=== PATIENT | male | born 1965 | race Hispanic/Latino ===

== ENCOUNTER 2021-12-12 17:13 | Inpatient (IN) | payer BC, OTHER ==
--- OUTSIDE RECORDS SUMMARY | 2021-12-12 17:18 | XMS REPORT | Continuity of Care Document ---
:1965 Author Organization [facility] t Address [address] [place] [address] Care Team Providers Name Role Phone Eric Arteaga Attending Clinician Unavailable Payers Payer Name Policy Type Policy Number Effective Date Expiration Date [facility] Blue [employer] 6 [id number] 2019 Common Spiri t Blue Shield of 00:00:00 - [facility] Problems Condition Condition Condition Status Onset Resolution Last Treating Co mments Source Name Details Category Date Date Treatment Clinician Date [id number] Arthritis Problem Active Co mmon [id number] of knee, Spirit left - [facility] Hypertensi HTN Problem Active Commo n on (hypertens Spirit ion) [facility] Erectile Erectile Problem Active Commo n dysfunctio dysfunctio Sp elder n n - [facility] Complicati Type 2 Problem Active Commo n on due to diabetes Spiri t diabetes mellitus - [facility] mellitus with other St type 2 [facility] complicati Medica l on Center Smoker Smoker Problem Active Common [facility] [id number] Prediabete Problem Active Co mmon s Spirit [facility] [id number] Erectile Problem Active Comm on dysfunctio Spirit n, - [facility] un[facility] erectile [facility] type [facility] Nicotine Nicotine Problem Active Commo n dependence dependence Sp elder - [facility] [id number] Tobacco Problem Active Commo n use Spirit disorder - [facility] [id number] Type [address] [facility] mellitus [facility] with other [facility] complicati Medica l on, Center without long-term current use of insulin Body mass Adult BMI Problem Active Com mon index 40+ 45.0-49.9 Spir it - severely kg/sq - [facility] obese [facility] [id number] Alcohol Problem Active Common abuse [facility] [id number] Mixed Problem Active Common hyperlipid [facility] emia [facility] [id number] Elevated Problem Active Comm on LFTs [facility] [id number] HTN Problem Active Common (hypertens Spirit ion)[facility] benign [facility] Hyperlipid Hyperlipid Problem Active C ommon emia emia [facility] [id number] Steatosis Problem Active Com mon of liver [facility] Allergies, Adverse Reactions, Alerts This patient has no known allergies or adverse reactions. Social History Social Habit Start Date Stop Date Quantity Comments Source History of Tobacco Current Smoker Co mmon [facility] - [facility] Use [facility] Sex Assigned At Com mon [facility] Smoking Status Start Date Stop Date Source Current Smoker 2021-08-02 00:00:00 Common Spiri [facility] Medications Ordered Filled Start Stop Current Ordering Indication Dosage Frequency Signature Comments Components Source Medication Medication Date Date Medication? Clinician (SIG) Name Name Kvng Calderon 2021- No Ozempic (0.25 or (0.25 or 3-03 07-28 (0.25 or 0.5 0.5 00:00: 00:00 0.5 MG/DOSE) 2 MG/DOSE) 2 00 :00 MG/DOSE) 2 MG/1.5ML MG/1.5ML MG/1.5ML buPROPion buPROPion 2020-02 No 1{table QD buPROPion HCl ER (XL) HCl ER (XL) 1-18 t_in_th HCl ER 150 MG 150 MG 00:00: e_morni (XL) 150 00 ng} MG Bupivicaine Bupivicaine 2020-02 No Common Polo Polo 0-26 Spirit 00:00: - [facility] 00 [facility] Kenalog Kenalog 2020-02 No 40mg Common (Triamcinol (Triamcinol 0-26 S pirit one) one) 00:00: - [facility]I 00 [facility] Bupivicaine Bupivicaine 2020-02 No 2.5mg Common Polo Polo 0-26 Spirit 00:00: - [facility] 00 [facility] Flakito Fraga 2020-02 No 40mg Common (Triamcinol (Triamcinol 0-26 S pirit one) one) 00:00: - [facility] 00 [facility] Bupivicaine Bupivicaine 2020-02 No 2.5mg Common Polo Polo 0-26 Spirit 00:00: - [facility] 00 [facility] Flakito Fraga 2020-02 No 40mg Common (Triamcinol (Triamcinol 0-26 S pirit one) one) 00:00: - [facility] 00 [facility] Meloxicam Meloxicam 2020-02- No 1{table QD Meloxicam 7.5 MG 7.5 MG 0-26 11-24 t} 7.5 MG 00:00: 00:00 00 :00 Meloxicam Meloxicam 2020-02- No 1{table QD Meloxicam 7.5 MG 7.5 MG 0-26 11-24 t} 7.5 MG 00:00: 00:00 00 :00 Janumet XR Janumet XR 2019-0 Yes Eric 1 Tablet Common 1-30 [place] Spirit 00:00: - [facility] 00 [facility] Simvastatin Simvastatin Yes Eric 1 tablet Common Arteaga in the Spirit evening - [facility] Lisinopril Lisinopril Yes Eric TAKE 1 Common Arteaga TABLET BY Spirit MOUTH ONCE - CHI DAILY [facility] Simvastatin Simvastatin Yes Eric TAKE 1 Common [place] TABLET BY Spirit MOUTH ONCE - [facility]I DAILY IN [facility] FOR 30 Center DAYS Nicorette Nicorette Yes Eric 1 piece as Common Starter Kit Starter Kit Arteaga needed Spirit every 2 - [facility]I hours [facility] Janumet XR Janumet XR No Janumet XR 50-1000 MG 50-1000 MG 50-1000 MG Nicorette Nicorette No Nicorette Starter Kit Starter Kit Starter 4 MG 4 MG Kit 4 MG Lisinopril Lisinopril No 1{table QD Lisinopril 5 MG 5 MG t} 5 MG Simvastatin Simvastatin No 1{table QD Simvastati 80 MG 80 MG t_in_th n 80 MG e_eveni ng} Lisinopril Lisinopril No 1{table QD Lisinopril 5 MG 5 MG t} 5 MG Janumet XR Janumet XR No Janumet XR 50-1000 MG 50-1000 MG 50-1000 MG Janumet XR Janumet XR No 1{table QD Janumet XR 50mg/1,000m 50mg/1,000m t} 50mg/1,000 g g mg Simvastatin Simvastatin No 1{table QD Simvastati 80 MG 80 MG t_in_th n 80 MG e_eveni ng} Lisinopril Lisinopril No 1{table QD Lisinopril 5 MG 5 MG t} 5 MG Janumet XR Janumet XR No Janumet XR 50-1000 MG 50-1000 MG 50-1000 MG Simvastatin Simvastatin No 1{table QD Simvastati 80 MG 80 MG t_in_th n 80 MG e_eveni ng} Janumet XR Janumet XR No 1{table QD Janumet XR 50mg/1,000m 50mg/1,000m t} 50mg/1,000 g g mg buPROPion buPROPion No 1{table QD buPROPion HCl ER (XL) HCl ER (XL) t_in_th HCl ER 150 MG 150 MG e_morni (XL) 150 ng} MG Janumet XR Janumet XR No Janumet XR 50-1000 MG 50-1000 MG 50-1000 MG Lisinopril Lisinopril No 1{table QD Lisinopril 5 MG 5 MG t} 5 MG Janumet XR Janumet XR No 1{table QD Janumet XR 50mg/1,000m 50mg/1,000m t} 50mg/1,000 g g mg buPROPion buPROPion No 1{table QD buPROPion HCl ER (XL) HCl ER (XL) t_in_th HCl ER 150 MG 150 MG e_morni (XL) 150 ng} MG Simvastatin Simvastatin No 1{table QD Simvastati 80 MG 80 MG t_in_th n 80 MG e_eveni ng} Janumet XR Janumet XR No 1{table QD Janumet XR 50mg/1,000m 50mg/1,000m t} 50mg/1,000 g g mg Simvastatin Simvastatin No 1{table QD Simvastati 80 MG 80 MG t_in_th n 80 MG e_eveni ng} buPROPion buPROPion No 1{table QD buPROPion HCl ER (XL) HCl ER (XL) t_in_th HCl ER 150 MG 150 MG e_morni (XL) 150 ng} MG Lisinopril Lisinopril No 1{table QD Lisinopril 5 MG 5 MG t} 5 MG Janumet XR Janumet XR No Janumet XR 50-1000 MG 50-1000 MG 50-1000 MG Janumet XR Janumet XR No 1{table QD Janumet XR 50mg/1,000m 50mg/1,000m t} 50mg/1,000 g g mg Simvastatin Simvastatin No 1{table QD Simvastati 80 MG 80 MG t_in_th n 80 MG e_eveni ng} Lisinopril Lisinopril No 1{table QD Lisinopril 5 MG 5 MG t} 5 MG Nicorette Nicorette No Nicorette Starter Kit Starter Kit Starter 4 MG 4 MG Kit 4 MG Janumet XR Janumet XR No 1{table QD Janumet XR 50mg/1,000m 50mg/1,000m t} 50mg/1,000 g g mg Simvastatin Simvastatin No 1{table QD Simvastati 80 MG 80 MG t_in_th n 80 MG e_eveni ng} Nicorette Nicorette No Nicorette Starter Kit Starter Kit Starter 4 MG 4 MG Kit 4 MG Lisinopril Lisinopril No 1{table QD Lisinopril 5 MG 5 MG t} 5 MG Janumet XR Janumet XR No 1{table QD Janumet XR 50mg/1,000m 50mg/1,000m t} 50mg/1,000 g g mg Simvastatin Simvastatin No 1{table QD Simvastati 80 MG 80 MG t_in_th n 80 MG e_eveni ng} Nicorette Nicorette No Nicorette Starter Kit Starter Kit Starter 4 MG 4 MG Kit 4 MG Lisinopril Lisinopril No 1{table QD Lisinopril 5 MG 5 MG t} 5 MG Lisinopril Lisinopril No 1{table QD Lisinopril 5 MG 5 MG t} 5 MG Simvastatin Simvastatin No 1{table QD Simvastati 80 MG 80 MG t_in_th n 80 MG e_eveni ng} Janumet XR Janumet XR No Janumet XR 50-1000 MG 50-1000 MG 50-1000 MG Nicorette Nicorette No Nicorette Starter Kit Starter Kit Starter 4 MG 4 MG Kit 4 MG Immunizations Ordered Immunization Filled Immunization Date Status Commen ts Source Name Name Pneumovax (PPSV23) Pneumovax (PPSV23) 2017-06-13 Completed Common Spirit 15:51:00 - [facility] Adacel (Tdap) Adacel (Tdap) 2017-06-13 Completed Common S pirit 15:51:00 [facility] Pneumovax (PPSV23) Pneumovax (PPSV23) 2017-06-13 Completed Common Spirit 15:51:00 - [facility] Adacel (Tdap) Adacel (Tdap) 2017-06-13 Completed Common S pirit 15:51:00 - [facility] Pneumovax (PPSV23) Pneumovax (PPSV23) 2017-06-13 Completed Common Spirit 15:51:00 - [facility] Adacel (Tdap) Adacel (Tdap) 2017-06-13 Completed Common S pirit 15:51:00 [facility] Pneumovax (PPSV23) Pneumovax (PPSV23) 2017-06-13 Completed Common Spirit 15:51:00 - [facility] Adacel (Tdap) Adacel (Tdap) 2017-06-13 Completed Common S pirit 15:51:00 [facility] Pneumovax (PPSV23) Pneumovax (PPSV23) 2017-06-13 Completed Common Spirit 15:51:00 - [facility] Adacel (Tdap) Adacel (Tdap) 2017-06-13 Completed Common S pirit 15:51:00 - [facility] Pneumovax (PPSV23) Pneumovax (PPSV23) 2017-06-13 Completed Common Spirit 15:51:00 - [facility] Adacel (Tdap) Adacel (Tdap) 2017-06-13 Completed Common S pirit 15:51:00 - [facility] Pneumovax (PPSV23) Pneumovax (PPSV23) 2017-06-13 Completed Common Spirit 15:51:00 - [facility] Adacel (Tdap) Adacel (Tdap) 2017-06-13 Completed Common S pirit 15:51:00 - [facility] Pneumovax (PPSV23) Pneumovax (PPSV23) 2017-06-13 Completed Common Spirit 15:51:00 - [facility] Adacel (Tdap) Adacel (Tdap) 2017-06-13 Completed Common S pirit 15:51:00 - [facility] Pneumovax (PPSV23) Pneumovax (PPSV23) 2017-06-13 Completed Common Spirit 15:51:00 - [facility] Adacel (Tdap) Adacel (Tdap) 2017-06-13 Completed Common S pirit 15:51:00 - [facility] TDAP > 7 TDAP > 7 2017-06-13 Completed Common Spirit Years-Adacel Years-Adacel 00:00:00 - [facility] Pneumovax Pneumovax 2017-06-13 Completed Common Spirit 00:00:00 - [facility] Vital Signs Vital Name Observation Time Observation Value Comments Source height 2021-08-02 13:40:00 66 [in_i] [facility] weight 2021-08-02 13:40:00 307 [lb_av] [facility] bmi 2021-08-02 13:40:00 49.55 kg/m2 [facility] height 2021-04-29 15:40:00 66 [in_i] [facility] weight 2021-04-29 15:40:00 307 [lb_av] [facility] temperature 2021-04-29 15:40:00 98 [degF] Common S pirit - [facility] bmi 2021-04-29 15:40:00 49.55 kg/m2 Common S pirit - [facility] blood pressure 2021-04-29 15:40:00 138 mm[Hg] Common Spirit - systolic [facility] blood pressure 2021-04-29 15:40:00 65 mm[Hg] Common Spirit - diastolic [facility] height 2021-01-14 15:20:00 66 [in_i] Common S pirit - [facility] weight 2021-01-14 15:20:00 307.8 [lb_av] Common [facility] - [facility] temperature 2021-01-14 15:20:00 98.2 [degF] Common S pirit - [facility] bmi 2021-01-14 15:20:00 49.67 kg/m2 Common S pirit - [facility] oximetry 2021-01-14 15:20:00 99 % Common S pirit [facility] respiratory rate 2021-01-14 15:20:00 18 /min Comm on Spirit - [facility] blood pressure 2021-01-14 15:20:00 129 mm[Hg] Common Spirit - systolic [facility] blood pressure 2021-01-14 15:20:00 58 mm[Hg] Common Spirit - diastolic [facility] height 2020-12-22 15:30:00 66 [in_i] Common S pirit - [facility] weight 2020-12-22 15:30:00 308 [lb_av] Common S pirit - [facility] bmi 2020-12-22 15:30:00 49.71 kg/m2 Common S pirit - [facility] blood pressure 2020-12-22 15:30:00 140 mm[Hg] Common Spirit - systolic [facility] blood pressure 2020-12-22 15:30:00 84 mm[Hg] Common Spirit - diastolic [facility] bmi 2020-12-08 14:40:00 49.76 kg/m2 Common [facility] oximetry 2020-12-08 14:40:00 96 % Common [facility] respiratory rate 2020-12-08 14:40:00 18 /min Comm on [facility] blood pressure 2020-12-08 14:40:00 133 mm[Hg] Common [facility] - systolic [facility] blood pressure 2020-12-08 14:40:00 63 mm[Hg] Common [facility] - diastolic [facility] height 2020-12-08 14:40:00 66 [in_i] Common [facility] weight 2020-12-08 14:40:00 308.3 [lb_av] [facility] temperature 2020-12-08 14:40:00 98.2 [degF] [facility] height 2020-10-13 10:40:00 66 [in_i] [facility] weight 2020-10-13 10:40:00 305 [lb_av] [facility] temperature 2020-10-13 10:40:00 98 [degF] [facility] bmi 2020-10-13 10:40:00 49.22 kg/m2 [facility] blood pressure 2020-10-13 10:40:00 135 mm[Hg] Common [facility] - systolic [facility] blood pressure 2020-10-13 10:40:00 72 mm[Hg] Common [facility] - diastolic [facility] Procedures This patient has no known procedures. Encounters Start End Encounter Admission Attending Care Care Encounter Source Date/Time Date/Time Type Type Clinicians Facility Department ID 2021-08-02 Outpatient Arteaga, [facility] [id number] Common 11:35:01 [facility] 2021-03-24 Outpatient Arteaga, [facility] [id number] Common 14:15:50 Eric [id number] [facility] 2021-03-24 Outpatient Arteaga, STLMLC STLMLC [id number] Common 14:05:16 Eric [id number] [facility] 2021-03-24 Outpatient Arteaga, STLMLC STLMLC [id number] Common 14:01:31 Eric [id number] [facility] 2021-03-24 Outpatient Arteaga, STLMLC STLMLC [id number] Common 14:01:06 Eric [id number] [facility] 2021-03-24 Outpatient Arteaga, STLMLC STLMLC [id number] Common 14:00:08 Eric [id number] [facility] 2021-03-24 Outpatient Arteaga, STLMLC STLMLC [id number] Common 12:55:36 Eric [id number] [facility] 2021-03-24 Outpatient Arteaga, STLMLC STLC [id number] Common 12:24:18 Eric [id number] [facility] 2021-03-24 Outpatient Arteaga, STLMLC STLMLC [id number] Common 12:21:59 Eric [id number] [facility] 2021-03-24 Outpatient Arteaga, STLMLC STLMLC [id number] Common 11:54:56 Eric [id number] [facility] 2021-03-24 Outpatient Arteaga, STLMLC STLC [id number] Common 11:30:31 Eric [id number] [facility] 2021-03-24 Outpatient Arteaga, STLMLC STLC [id number] Common 11:28:46 Eric [id number] [facility] 2021-03-24 Outpatient Arteaga, STLMLC STLC [id number] Common 11:19:18 Eric [id number] [facility] 2021-08-02 2021-08-02 (TEL) STLMLC STLC [id number] Co mmon 00:00:00 00:00:00 [facility] 2021-08-02 2021-08-02 OFFICE STLC STLC [id number] Co mmon 00:00:00 00:00:00 VISIT EST Spir it PT LEVEL 3 - [facility] 2021-04-29 2021-04-29 OFFICE STLMLC STLMLC [id number] Co mmon 00:00:00 00:00:00 VISIT Spirit ESTAB PT - CHI LEVEL 4 [facility] 2021-01-14 2021-01-14 OFFICE STLMLC STLMLC [id number] Co mmon 00:00:00 00:00:00 VISIT Spirit ESTAB PT - CHI LEVEL 4 [facility] 2020-12-22 2020-12-22 OFFICE STLMLC STLMLC [id number] Co mmon 00:00:00 00:00:00 VISIT NEW Spir it PT LEVEL 4 - [facility] 2020-12-08 2020-12-08 OFFICE STLMLC STLMLC [id number] Co mmon 00:00:00 00:00:00 VISIT EST Spir it PT LEVEL 3 - [facility] 2020-10-13 2020-10-13 (TEL) STLMLC STLMLC [id number] Co mmon 00:00:00 00:00:00 [facility] 2020-10-13 2020-10-13 OFFICE STLMLC STLMLC [id number] Co mmon 00:00:00 00:00:[address] [facility] ESTAB PT - CHI LEVEL 4 [facility] 2020-10-07 2020-10-07 (TEL) STLMLC STLMLC [id number] Co mmon 00:00:00 00:00:00 [facility] 2020-07-09 2020-07-09 Outpatient STLMLC STLMLC [id number] Common 00:00:00 00:00:00 [facility] 2020-03-23 2020-03-23 Outpatient STLMLC STLMLC [id number] Common 00:00:00 00:00:00 [facility] 2019 2019 Outpatient STLMLC STLMLC [id number] Common 00:00:00 00:00:00 [facility] 2019-09-04 2019-09-04 [id number] Common 16:30:00 16:30:[address] [facility] 2019-08-23 2019-08-23 [facility] [id number] Common 16:06:00 16:06:[address] [facility] 2019-06-20 2019-06-20 [facility] [id number] Common 16:53:00 16:53:[address] [facility] 2019-03-28 2019-03-28 [facility] [id number] Common 17:26:00 17:26:00 [address] [facility] [address] Spir it Road [facility] 2019-03-27 2019-03-27 [facility] [id number] Common 10:47:00 10:47:[address] [facility] 2019-03-12 2019-03-12 [facility] [id number] Common 16:16:00 16:16:[address] [facility] 2019-02-18 2019-02-18 [facility] [id number] Common 08:30:00 08:30:[address] [facility] 2019-02-08 2019-02-08 [facility] [id number] Common 08:06:00 08:06:[address] [facility] 2019-02-05 2019-02-05 [facility] [id number] Common 17:05:00 17:05:[address] [facility] 2019-01-09 2019-01-09 [facility] [id number] Common 15:45:00 15:45:[address] [facility] 2018-11-09 2018-11-09 [facility] [id number] Common 08:30:00 08:30:[address] [facility] 2018-07-06 2018-07-06 [facility] [id number] Common 08:30:00 08:30:[address] [facility] 2018-05-02 2018-05-02 [facility] [id number] Common 16:45:00 16:45:[address] [facility] 2018-04-12 2018-04-12 [facility] [id number] Common 09:15:00 09:15:[address] [facility] 2018-03-01 2018-03-01 [facility] [id number] Common 14:17:00 14:17:[address] [facility] 2018-02-16 2018-02-16 [facility] [id number] Common 08:00:00 08:00:[address] [facility] 2017-11-23 2017-11-23 [facility] [id number] Common 08:45:00 08:45:[address] [facility] 2017-08-14 2017-08-14 [facility] [id number] Common 09:30:00 09:30:[address] [facility] 2017-07-13 2017-07-13 [facility] [id number] Common 09:00:00 09:00:[address] [facility] 2017-06-13 2017-06-13 [facility] [id number] Common 15:45:00 15:45:[address] [facility] Results Test Description Test Time Test Comments Results Result Comments Source SARS-COV 2 Antigen SARS-COV 2 [facility] Antigen [facility]
[2021-12-12 20:13] LABS: Absolute Lymphocytes (CBC) 2.9 K/uL (0.7-4.9); Hematocrit 50.1 % (39.6-49.0); Lymphocytes % 22.6 % (15.3-44.8); MCV 88.5 fL (80-100); MPV 8.2 fL (7.6-11.3); RBC Red Blood Cell Count 5.67 M/uL (4.33-5.43)
[2021-12-12 20:29] LABS: Potassium 3.9 mmol/L (3.5-5.1)
--- NOTE | 2021-12-12 21:09 | RAD REPORT ---
EXAM DESCRIPTION: CT - Pelvis W/Cont - 12/12/2021 8:59 pm CLINICAL HISTORY: rectal swelling COMPARISON: <Comparisons> FINDINGS: Skin thickening and subcutaneous edema in the left medial gluteal cleft. No fluid collecti on identified. Normal appendix. No bowel obstruction. Atherosclerosis. No osseous abnormality. IMPRESSION: Skin thickening and subcutaneous edema in the left medial gluteal cleft likely a celluli tis but no evidence of a perianal abscess.
--- NOTE | 2021-12-12 21:21 | ER ---
Nurse's Notes [facility] Name: Radhames Oleary Age: 55 yrs Sex: Male : 1965 Arrival Date: 12/12/2021 Time: 17:28 Bed 23 Private MD: Diagnosis: Cellulitis of buttock;Leukocytosis Presentation: 12/12 17:32 Chief complaint: Patient states: i got a boil above the rectum on the buttocks cheeks. tw2 we just left urgent care so they suggested we come here to get a CT to make sure it doesn't track. it has been going on for a week. no fever. Coronavirus screen: At this time, the client does not indicate any symptoms associated with coronavirus-19. Ebola Screen: Patient denies travel to an Ebola-affected area in the 21 days before illness onset. Initial Sepsis Screen: Does the patient meet any 2 criteria? No. Patient's initial sepsis screen is negative. Does the patient have a suspected source of infection? No. Patient's initial sepsis screen is negative. Risk Assessment: Do you want to hurt yourself or someone else? Patient reports no desire to harm self or others. Onset of symptoms was December 12, 2021. 17:32 Method Of Arrival: Ambulatory tw2 17:32 Acuity: JOSE M 3 tw2 Triage Assessment: 17:36 General: Appears in no apparent distress. obese, well groomed, Behavior is calm, tw2 cooperative, appropriate for age. Pain: Complains of pain in gluteal cleft. Derm: Reports abscess. Historical: - Allergies: 17:35 No Known Allergies; tw2 - Home Meds: 17:35 Ozempic 1 mg/dose (2 mg/1.5 mL) subcutaneous pnij once wkly [Active]; Simvastatin Oral tw2 [Active]; - PMHx: 17:35 Diabetes mellitus; tw2 - PSHx: 17:35 None; tw2 - Immunization history:: Client reports receiving the 2nd dose of the Covid vaccine, Last tetanus immunization: unknown. - Social history:: Smoking status: Patient/guardian denies using tobacco, Stopped _ months ago 8. Screenin:07 Abuse screen: Denies threats or abuse. Denies injuries from another. Nutritional as6 screening: No deficits noted. Tuberculosis screening: No symptoms or risk factors identified. Fall Risk None identified. Assessment: 20:06 General: Appears in no apparent distress. Behavior is calm, cooperative. Pain: as6 Complains of pain in gluteal cleft. Neuro: Level of Consciousness is awake, alert. Respiratory: Respiratory effort is even, unlabored. Derm: Reports "I have a boil". 22:05 General: "can I please get something for pain? I can't even sit down" provider notified as6 . 22:50 General: attempted to call report. told they would call back . as6 Vital Signs: 17:32 BP 150 / 100; Pulse 79; Resp 17; Temp 98.1(TE); Pulse Ox 99% on R/A; Weight 131.54 kg; tw2 Height 5 ft. 5 in. (165.10 cm); Pain 9/10; 20:07 BP 150 / 72; Pulse 89; Resp 16 S; Pulse Ox 100% on R/A; as6 22:42 BP 123 / 76; Pulse 74; Resp 18 S; Pulse Ox 100% on R/A; as6 17:32 Body Mass Index 48.26 (131.54 kg, 165.10 cm) tw2 ED Course: 17:28 Patient arrived in ED. ja2 17:34 Triage completed. tw2 17:36 Arm band placed on. tw2 17:52 Luciano Neal PA is PHCP. [facility] 17:52 Raj Mc MD is Attending Physician. jm 19:57 Jam Morrison, JAYAN is Primary Nurse. as6 20:04 Attending Physician role handed off by Raj Mc MD ms3 20:04 Devendra Blake DO is Attending Physician. ms3 20:06 Inserted saline lock: 18 gauge in right antecubital area, using aseptic technique. as6 Blood collected. 20:07 Bed in low position. Call light in reach. as6 21:01 CT Pelvis w cont In Process Unspecified. EDMS 21:20 Babak Valadez MD is Hospitalizing Provider. ms3 22:43 No provider procedures requiring assistance completed. Patient admitted, IV remains in as6 place. Administered Medications: 22:13 Drug: Rocephin (cefTRIAXone) 1 grams Route: IV; Rate: calculated rate; Site: right as6 antecubital; 23:11 Follow up: Response: No adverse reaction; IV Status: Completed infusion; IV Intake: [id number] 22:13 Drug: morphine 4 mg Route: IVP; Infused Over: 4 mins; Site: right antecubital; as6 23:11 Follow up: Response: No adverse reaction as6 22:15 Drug: vancoMYCIN 1 grams Route: IVPB; Infused Over: 2 hrs; Site: right antecubital; as6 23:11 Follow up: Response: No adverse reaction; IV Status: Infusion continued upon admission; as6 IV Intake: 150ml Medication: 22:43 VIS not applicable for this client. as6 Intake: 23:11 IV: 150ml; Total: 150ml. as6 23:11 IV: 50ml; Total: 200ml. as6 Outcome: 21:21 Decision to Hospitalize by Provider. ms3 22:43 Condition: stable as6 22:43 Instructed on the need for admit. as6 23:11 Admitted to Tele accompanied by tech, via wheelchair, room 410, with chart, Report as6 called to SharonMarquita 23:12 Patient left the ED. as6 Signatures: Dispatcher [employer] EDMS Luciano Neal PA PA jmm Wise, Tara, RN RN tw2 Devendra Blake DO DO ms3 Balbina Caraballo ja2 Jam Morrison, RN RN as6 Corrections: (The following items were deleted from the chart) 17:37 17:32 Chief complaint: Patient states: i got a boil above the rectum on the buttocks tw2 cheeks. we just left urgent care so they suggested we come here to get a CT to make sure it doesn't track tw2
--- NOTE | 2021-12-12 21:22 | EDPHYS ---
Physician Documentation [facility] Name: Radhames Oleary Age: 55 yrs Sex: Male : 1965 Arrival Date: 12/12/2021 Time: 17:28 Bed 23 Private MD: ED Physician Devendra Blake HPI: 12/12 17:53 This 55 yrs old Male presents to ER via Ambulatory with complaints of Boil. [facility] 17:53 Onset: The symptoms/episode began/occurred gradually, 1 week(s) ago. Is a 55-year-old [facility] male with history of diabetes mellitus the presents emerged part with a swelling to his buttocks. Patient went to urgent care but there were concerns that it may be a perirectal abscess. Advised to go to the ED for further evaluation.. Historical: - Allergies: 17:35 No Known Allergies; tw2 - Home Meds: 17:35 Ozempic 1 mg/dose (2 mg/1.5 mL) subcutaneous pnij once wkly [Active]; Simvastatin Oral tw2 [Active]; - PMHx: 17:35 Diabetes mellitus; tw2 - PSHx: 17:35 None; tw2 - Immunization history:: Client reports receiving the 2nd dose of the Covid vaccine, Last tetanus immunization: unknown. - Social history:: Smoking status: Patient/guardian denies using tobacco, Stopped _ months ago 8. ROS: 17:53 Constitutional: Positive for body aches, chills. [facility] 17:53 Skin: Positive for abscess. 17:53 All other systems are negative. Exam: 17:53 Constitutional: This is a well developed, well nourished patient who is awake, alert, jmm and in no acute distress. Head/Face: atraumatic. Eyes: EOMI, no conjunctival erythema appreciated ENT: Moist Mucus Membranes Neck: Trachea midline, Supple Chest/axilla: Normal chest wall appearance and motion. Cardiovascular: Regular rate and rhythm. No edema appreciated Respiratory: Normal respirations, no respiratory distress appreciated Abdomen/GI: Non distended Back: Normal ROM 17:53 Skin: abscess, that is moderate sized, of the left gluteus cecil. 17:53 Neuro: Orientation: is normal, Mentation: is normal, Memory: is normal. 17:53 Psych: Behavior/mood is pleasant, cooperative. Vital Signs: 17:32 BP 150 / 100; Pulse 79; Resp 17; Temp 98.1(TE); Pulse Ox 99% on R/A; Weight 131.54 kg; tw2 Height 5 ft. 5 in. (165.10 cm); Pain 9/10; 20:07 BP 150 / 72; Pulse 89; Resp 16 S; Pulse Ox 100% on R/A; as6 22:42 BP 123 / 76; Pulse 74; Resp 18 S; Pulse Ox 100% on R/A; as6 17:32 Body Mass Index 48.26 (131.54 kg, 165.10 cm) tw2 MDM: 17:53 Patient medically screened. christina 21:18 Data reviewed: vital signs, nurses notes, lab test result(s), radiologic studies, and ms3 as a result, I will admit patient. Counseling: I had a detailed discussion with the patient and/or guardian regarding: the historical points, exam findings, and any diagnostic results supporting the discharge/admit diagnosis, lab results, radiology results, the need for further work-up and treatment in the hospital. ED course: PMD Dr Etseves. Discussed case with Dr Valadez and he accepts patient as admission. All questions answered. Patient understands and agrees with plan. . 12/12 18:04 Order name: CBC with Diff; Complete Time: 20:48 jmm 12/12 18:04 Order name: BMP; Complete Time: 20:48 jmm 12/12 18:04 Order name: CT Pelvis w cont; Complete Time: 21:12 m 12/12 21:21 Order name: SARS RAPID; Complete Time: 22:52 as6 12/12 18:04 Order name: Saline Lock; Complete Time: 20:08 jmm Administered Medications: 22:13 Drug: Rocephin (cefTRIAXone) 1 grams Route: IV; Rate: calculated rate; Site: right as6 antecubital; 23:11 Follow up: Response: No adverse reaction; IV Status: Completed infusion; IV Intake: [id number] 22:13 Drug: morphine 4 mg Route: IVP; Infused Over: 4 mins; Site: right antecubital; as6 23:11 Follow up: Response: No adverse reaction as6 22:15 Drug: vancoMYCIN 1 grams Route: IVPB; Infused Over: 2 hrs; Site: right antecubital; as6 23:11 Follow up: Response: No adverse reaction; IV Status: Infusion continued upon admission; as6 IV Intake: 150ml Disposition: 21:18 Co-signature as Attending Physician, Devendra Blake DO. ms3 21:20 Chart complete. ms3 Disposition Summary: 12/12/21 21:21 Hospitalization Ordered Provider: Babak Valadez ms3 Condition: Stable ms3 Problem: new ms3 Symptoms: are unchanged ms3 Bed/Room Type: Standard ms3 Hospitalization Status: Observation(12/12/21 21:43) ms3 Location: Telemetry/MedSurg (observation)(12/12/21 21:43) ms3 Room Assignment: 410(12/12/21 22:41) cg Diagnosis - Cellulitis of buttock ms3 - Leukocytosis ms3 Forms: - Medication Reconciliation Form ms3 - SBAR form ms3 Signatures: Dispatcher [employer] EDRaj Lee MD MD cha Mickail, Joel, PA PA jmm Garcia, Cindy, RN RN Yamila Krause RN RN tw2 Devendra Blake DO DO ms3 Jam Morrison RN RN as6 Corrections: (The following items were deleted from the chart) 21:43 21:21 Inpatient Admission ms3 ms3 21:43 21:21 Telemetry/MedSurg (Inpatient) ms3 ms3 21:43 21:21 ms3 ms3 22:41 21:43 ms3 cg
--- NOTE | 2021-12-12 21:42 | P.HP ---
Certification for Inpatient Patient admitted to: Observation With expected LOS: <2 Midnights Patient will require the following post-hospital care: None Practitioner: I am a practitioner with admitting privileges, knowledge of patient current condition, hospital course, and medical plan of care. Services: Services provided to patient in accordance with Admission requirements found in Title 42 Section 412.3 of the Code of Federal Regulations Patient History Date of Service: 12/13/21 Primary Care Provider: Dr. Esteves Reason for admission: Left Buttock Cellulitis History of Present Illness: Mr. Radhames Oleary is a pleasant 55 year old male who has a past medical history of type II diabetes mellitus and hyperlipidemia who presents to the [facility] Emergency Department for left buttock cellulitis. He reports that, over the last one week, he has noticed a progressively worsening rash on his left buttock. He states that it has been painful. He describes it as pressure and grades it an 8-9/10 in severity. He denies any alleviating factors. He has tried using cccu-gjm-oqslnbk ointments and acetamin ophen, without alleviation of his symptoms. On review of systems, he denies any fevers, chills, headaches, dizziness, syncope, weakness, chest pain, palpitations, shortness of breath, wheezing, cough, abdominal pain, nausea/vomiting, diarrhea, constipation, hematochezia, melena, dysuria, hematuria, myalgia, or any other symptoms. Due to worsening pain, he presented to the Emergency Department for further evaluation. Upon presentation, his vital signs were stable. His laboratory studies were notable for a WBC count of 12,800. CT pelvis revealed, "skin thickening and subcutaneous edema in the left medial gluteal cleft likely a cellulitis but no evidence of a perianal abscess." In the Emergency Department, he was given vancomycin and cefepime. He was admitted to the General Internal Medicine service for further evaluation. Allergies No Known Allergies Allergy (Verified 12/12/21 22:13) Home medications list reviewed: Yes Home Medications: Semaglutide [Ozempic] 1 mg SQ EVERY 7TH DAY 12/13/21 Simvastatin 40 mg PO BEDTIME 12/13/21 - Past Medical/Surgical History Diabetic: Yes -: Type II Diabetes Mellitus -: Hyperlipidemia Past Surgical History: Patient denies surgical history - Family History Family History: Reviewed- Non-Contributory - Social History Smoking Status: Former smoker Alcohol use: No CD- Drugs: No Review of Systems General: Unremarkable Eyes: Unremarkable ENT: Unremarkable Respiratory: Unremarkable Cardiovascular: Unremarkable Gastrointestinal: Unremarkable Genitourinary: Unremarkable Musculoskeletal: Unremarkable Integumentary: Rash (left buttock) Neurological: Unremarkable Lymphatics: Unremarkable Physical Examination - Vital Signs Temperature: 98.1 F Blood Pressure: 150/72 Pulse: 89 Respirations: 16 Pulse Ox (%): 100 - Physical Exam General: Alert, In no apparent distress, Oriented x3 HEENT: Atraumatic, PERRLA, Mucous membr. moist/pink, EOMI, Sclerae nonicteric Neck: Supple, JVD not distended Respiratory: Clear to auscultation bilaterally, Normal air movement Cardiovascular: Regular rate/rhythm, Normal S1 S2, No gallops, No rubs, No murmurs, Edema (trace bilateral) Gastrointestinal: Normal bowel sounds, Soft and benign, Non-distended, No tenderness, No rebound, No guarding Musculoskeletal: No clubbing, No swelling Integumentary: Other (exam performed alongside ED RNBogdan. Left medial gluteal cleft with erythema, swelling, and tenderness. Site is with fluctuance.) Neurological: Normal gait, Normal speech, Cranial nerves 3-12 intact, Normal affect - Studies Laboratory Data (last 24 hrs) 12/12/21 20:04: Sodium 137, Potassium 3.9, BUN 13, Creatinine 1.08, Glucose 108 H 12/12/21 20:04: WBC 12.80 H, Hgb 16.7, Hct 50.1 H, Plt Count 196 Assessment and Plan - Plan # Left Medial Gluteal Cleft Cellulitis Although CT is not suggestive of abscess, exam is notable for fluctuance at the cellulitic site. - Admit under observation status - Does not currently meet sepsis criteria - Consulted General Surgery - recommendations appreciated - NPO past midnight - Continue vancomycin + cefepime for tonight - PRN pain medications - Diabetes places him at risk for development of abscesses # Type II Diabetes Mellitus - Ordered Hgb A1c - Hold home semaglutide - Correction scale insulin # Hyperlipidemia - Continue home simvastatin Babak Valadez M.D. Discharge Plan: Home Plan to discharge in: 24 Hours - Advance Directives Does patient have a Living Will: No Does patient have a Durable POA for Healthcare: No - Code Status/Comfort Care Code Status Assessed: Yes Code Status: Full Code
[2021-12-12] MEDS ORDERED: NA CHLORIDE 0.9% 250 ML ONE (21:54)
[2021-12-12] MEDS ORDERED: VANCOMYCIN 1 GM/VIAL ONE (21:54)
[2021-12-12] MEDS ORDERED: NA CHLORIDE 0.9% 50 ML IV ONE (21:54)
[2021-12-12] MEDS ORDERED: CEFTRIAXONE 1000 MG/VIAL ONE (21:54)
[2021-12-12] MEDS ORDERED: MORPHINE 4 MG/ML SYR ONE (22:09)
[2021-12-12 22:21] LABS: SARS-CoV-2 Antigen Rapid Res Negative (Negative)
[2021-12-12] MEDS ORDERED: ACETAMINOPHEN 500 MG TAB PO PRN (23:33)
[2021-12-13] MEDS ORDERED: D50W 25 GM/50 ML SYRINGE IV PRN (00:46)
[2021-12-13] MEDS ORDERED: GLUCAGON 1 MG/VIAL IM PRN (00:46)
[2021-12-13] MEDS ORDERED: D10W 125 ML IV PRN (01:02)
[2021-12-13 01:14] VITALS: BMI 47.7
[2021-12-13] MEDS ORDERED: VANCOMYCIN 1 GM in NA CHLORIDE 0.9% 250 ML IVPB ONE (02:00)
[2021-12-13 04:29] LABS: Absolute Lymphocytes (CBC) 2.8 K/uL (0.7-4.9); Hematocrit 43.1 % (39.6-49.0); Lymphocytes % 22.6 % (15.3-44.8); MCV 87.7 fL (80-100); MPV 8.4 fL (7.6-11.3); RBC Red Blood Cell Count 4.91 M/uL (4.33-5.43)
[2021-12-13 04:50] LABS: Albumin 3.4 g/dL (3.4-5.0); Bilirubin Total 0.8 mg/dL (0.2-1.0); Magnesium 1.9 mg/dL (1.8-2.4); Potassium 4.1 mmol/L (3.5-5.1)
[2021-12-13] MEDS: INSULIN -REGULAR HUMAN 50 UNIT/0.5 ML ML SQ SCH ×4 (07:30→21:00)
[2021-12-13] MEDS: CEFEPIME 1 GM in NA CHLORIDE 0.9% 100 ML IV SCH ×2 (09:00→21:31)
[2021-12-13] MEDS ORDERED: ENOXAPARIN 40 MG/0.4 ML SQ SCH (09:00)
[2021-12-13] MEDS ORDERED: dexAMETHasone 10 MG/ML VIAL ONE (09:47)
[2021-12-13] MEDS ORDERED: propofoL 200 MG/20 ML VIAL IV ONE (09:47)
[2021-12-13] MEDS ORDERED: FENTANYL CITR 100 MCG/2 ML ONE (09:47)
[2021-12-13] MEDS ORDERED: MIDAZOLAM HCL 2 MG/2 ML INJ ONE (09:47)
[2021-12-13] MEDS ORDERED: KETOROLAC 30 MG/ML INJ ONE (09:48)
[2021-12-13] MEDS ORDERED: LIDOCAINE 2% MPF 5 ML VIAL ONE (09:48)
[2021-12-13] MEDS ORDERED: NA CHLORIDE 0.9% 1,000 ML ONE (09:52)
--- NOTE | 2021-12-13 10:20 | P.BOP ---
Preoperative diagnosis: left buttock abscess Postoperative diagnosis: same Primary procedure: Incision and drainage of left buttock abscess 2 x 2.5 x 1.5 cm Estimated blood loss: <10cc Specimen: pus, necrotic tissue Findings: as above Anesthesia: General Complications: None Transferred to: Recovery Room Condition: Good
--- NOTE | 2021-12-13 10:43 | CON ---
Date of Consultation: 12/13/2021 Diagnosis: Left buttock cellulitis and abscess. History Of Present Illness: This is the case of a 55-year-old patient with history of diabetes, come s to us with an induration of the left buttocks about 1 week. He has been trying to treat it with wa rm compress. He has been trying to squeeze things out, but it just getting to the point that it is g etting worse, so this morning he decided to come to the ER since it was not getting better and becomi ng very tender. He described that as the mid left buttock area. He denies any trauma, any dysuria, hematuria, hematochezia, melena, any recent traveling out of the country, any family member sick at h ome. Allergies: NONE. Medications: Ozempic. Past Medical History: Hyperlipidemia, diabetes. Past Surgical History: None. Family History: Noncontributory. Social History: He is a former smoker. He does not smoke anymore. He does not drink alcohol. Review of Systems: See H and P. Ten points otherwise unremarkable. Physical Examination: General: The patient is awake, alert. HEENT: Pupils are equal and reactive. Anicteric. Neck: Supple. Chest: Clear. Heart: S1, S2. Abdomen: Soft and depressible. No guarding or rebound. Integumentary: Shows a left buttock abscesses. This seems to be away from the perianal region. The re is fluctuance present and cellulitis. Extremities: Good capillary refill. Laboratory Data: Blood work shows WBC count of 12.6, hemoglobin of 14, platelets 170. Chloride is 1 6, creatinine 1.1. CAT scan of the abdomen and pelvis reviewed by Dr. Crook. Left medial gluteal are a of cellulitis with no evidence of perianal abscess, just clinically with abscess in the left buttoc k. Assessment: It is a 55-year-old patient with left buttock abscess, diabetes. Benefits, alternatives , and risks of incision and drainage fully explained, which include, but not limited to infection, bl eeding, damage to adjacent structures, anesthesia complication, recurrence, [place] and even . He al so understands this may not relieve any symptoms. He might need more than one surgical intervention. He may need wound care. He also understands the importance of controlling his diabetes. HM/MODL Voice ID: [id number] Report ID: [id number]
[2021-12-13 11:36] VITALS: O2SAT 99
--- NOTE | 2021-12-13 16:13 | OP ---
Date of Procedure: 12/13/2021 Surgeon: Suresh Kelly MD Preoperative Diagnosis: Left buttock abscess. Postoperative Diagnosis: Left buttock abscess. Procedure: Incision and drainage of left buttock abscess, 2 x 2.5 x 1.5 cm. Specimen: Pus and necrotic tissue. Finding: Abscess. Complications: None. Wound Care: Iodoform gauze. Indication: This is the case of a male, who comes to us with tenderness of the left buttock region. The benefits, alternatives, and risks of incision and drainage fully explained, which include, but n ot limited to infection, bleeding, damage to adjacent structures, anesthesia complication, nonhealing wound, PA and even . He also understands this may not relieve any symptoms. He might need mor e than one surgical intervention and he might need wound care. He understood, signed a consent. The area of concern was marked by me and the patient in the holding room. Procedure In Detail: The patient was brought to the operating room, placed in supine position. Anes thesia was done without complication. The patient was placed in lateral decubitus position with prop er protection. Left buttock was prepped and draped in the usual sterile fashion. Local anesthesia w as applied followed by incision in the area and we found a cavity, which was about 2 x 2.5 x 1.5 cm w ith a large amount of pus present, so all those were drained, does not seem to be connecting to the a nus or nearby, just in the buttock itself contained. The area was irrigated. Hemostasis was obtaine d. Necrotic tissue was removed and then the area was packed with iodoform quarter of an inch. The patient tolerated the procedure well. The patient was sent to recovery in s table condition. AZALIA/BYRON Voice ID: [id number] Report ID: [id number]
[2021-12-13] MEDS ORDERED: VANCOMYCIN 2 GM in NA CHLORIDE 0.9% 500 ML IVPB SCH (20:00)
[2021-12-13] MEDS ORDERED: ATORVASTATIN 20 MG TAB PO SCH (21:00)
[2021-12-13] MEDS ORDERED: VANCOMYCIN 1 GM in NA CHLORIDE 0.9% 250 ML IVPB SCH (21:00)
[2021-12-13] MEDS ORDERED: HOME MED 1 EA UNK (Simvastatin [Simvastatin] 40 MG Tablet) PO SCH (21:00)
--- NOTE | 2021-12-13 22:55 | P.PN ---
Date of Service: 12/13/21 Subjective: s/p I&D today feeling better no new pains, no nausea/vomiting ROS: 10 point ROS as noted above, otherwise negative Physical Exam: Gen: NAD, AOx3 HEENT: normal conjunctiva, sclera anicteric CV: regular rate & rhythm, no edema Pulm: non-labored respirations, clear bilaterally Abd: soft, non-tender, non-distended Skin: left buttock with surgical dressing / packing in place Neuro: normal speech, normal affect, moves all extremities vitals reviewed Problem List #Left Medial Gluteal Cleft Cellulitis/Abscess general surgery consulted, s/p I&D pain improved no new / worsening symptoms continue empiric IV antibiotics pain meds as needed #NIDDM2 hold home med, SSI, accucheks #HLD continue home simvastatin Code: full Dispo: home tomorrow if improved Time Spent Managing Pts Care (In Minutes): 35
[2021-12-14 03:44] LABS: Absolute Lymphocytes (CBC) 1.7 K/uL (0.7-4.9); Hematocrit 45.4 % (39.6-49.0); Lymphocytes % 14.8 % (15.3-44.8); MCV 87.8 fL (80-100); MPV 8.5 fL (7.6-11.3); RBC Red Blood Cell Count 5.17 M/uL (4.33-5.43)
[2021-12-14 03:52] LABS: Potassium 4.2 mmol/L (3.5-5.1)
[2021-12-14] MEDS: INSULIN -REGULAR HUMAN 50 UNIT/0.5 ML ML SQ SCH ×2 (07:30→11:30)
[2021-12-14] MEDS: CEFEPIME 1 GM in NA CHLORIDE 0.9% 100 ML IV SCH (09:49)
--- NOTE | 2021-12-14 10:59 | P.DS ---
Admission Date: 12/13/21 Discharge Date: 12/14/21 Primary Care Provider: Dr. Esteves Disposition: ROUTINE DISCHARGE Discharge Condition: FAIR Reason for Admission: Left Buttock Cellulitis - Problems (1) Cellulitis and abscess of buttock Status: Acute Brief History of Present Illness: Mr. Radhames Oleary is a pleasant 55 year old male who has a past medical history of type II diabetes mellitus and hyperlipidemia who presented to the ED for left buttock cellulitis. He stated he noticed a progressively worsening painful rash on his left buttock. He has tried using qqgg-jlh-llwuqtf ointments and acetaminophen, without alleviation of his symptoms. Upon presentation, his vital signs were stable. His laboratory studies were notable for a WBC count of 12,800. CT pelvis revealed, "skin thickening and subcutaneous edema in the left medial gluteal cleft likely a cellulitis but no evidence of a perianal abscess. Patient was given IV antibiotics and admitted for further management. Hospital Course: Patient admitted to the medical floor and treated with IV cefepime and vancomycin. He was seen in consultation by general surgery Dr. Kelly who performed incision and drainage. Wound was packed and dressed. Deep tissue wound culture was taken and the result is pending. No fever since admission. Patient is deemed stable for us discharge as per surgery. He is discharged with Augmentin and doxycycline for the gluteal abscess. Vital Signs/Physical Exam: Temp Pulse Resp BP Pulse Ox 97.5 F 64 17 124/60 97 12/14/21 08:00 12/14/21 08:00 12/14/21 08:00 12/14/21 08:00 12/14/21 08:00 General: Alert, In no apparent distress, Oriented x3 HEENT: Mucous membr. moist/pink Neck: Supple, JVD not distended Respiratory: Clear to auscultation bilaterally, Normal air movement Cardiovascular: No edema, Regular rate/rhythm Gastrointestinal: Normal bowel sounds, Soft and benign, Non-distended Musculoskeletal: No swelling Neurological: Normal strength at 5/5 x4 extr Laboratory Data at Discharge: WBC 11.50 K/uL (4.3-10.9) H 12/14/21 03:22 Hgb 15.6 g/dL (13.6-17.9) 12/14/21 03:22 Hct 45.4 % (39.6-49.0) 12/14/21 03:22 Plt Count 186 K/uL (152-406) 12/14/21 03:22 Sodium 139 mmol/L (136-145) 12/14/21 03:22 Potassium 4.2 mmol/L (3.5-5.1) 12/14/21 03:22 BUN 12 mg/dL (7-18) 12/14/21 03:22 Creatinine 1.00 mg/dL (0.55-1.3) 12/14/21 03:22 Glucose 132 mg/dL (74-106) H 12/14/21 03:22 Magnesium 1.9 mg/dL (1.8-2.4) 12/13/21 04:05 Total Bilirubin 0.8 mg/dL (0.2-1.0) 12/13/21 04:05 AST 17 U/L (15-37) 12/13/21 04:05 ALT 39 U/L (12-78) 12/13/21 04:05 Alkaline Phosphatase 82 U/L (45-117) 12/13/21 04:05 Home Medications: Semaglutide [Ozempic] 1 mg SQ EVERY 7TH DAY 12/13/21 Simvastatin 40 mg PO BEDTIME 12/13/21 Amox/Clavulanate [Augmentin 875-125 Tab] 1 each PO BID #20 tab 12/14/21 Doxycycline Hyclate 100 mg PO BID #20 cap 12/14/21 New Medications: Amox/Clavulanate [Augmentin 875-125 Tab] 1 each PO BID #20 tab Doxycycline Hyclate 100 mg PO BID #20 cap Physician Discharge Instructions: Wound care: Clean with NS, pack wound with iodofom guaze packing, apply 4 x 4 daily. Followup: Suresh Kelly MD [ACTIVE - CAN ADMIT] - 1 Week Danny Esteves MD [Primary Care Provider] - 1-2 Weeks Time spent managing pt's care (in minutes): 33
[2021-12-14 12:28] VITALS: BP 125/60; TEMP 97
--- NOTE | 2021-12-14 15:10 | PN ---
Date of Progress Note: 12/14/2021 Diagnosis: Cellulitis of the buttocks and abscess, status post incision and drainage. Subjective: Doing well. No complaint. Objective: Chest: Clear. Abdomen: Soft and depressible. Skin: Intact surgical site. Plan: Follow up cultures. Patient may be discharged home and [facility]. Wound condition, he will do wet-to-dry dressing daily. He feels comfortable with it. He says his will be doing that. We will see the patient then in 1 week from now. AZALIA/BYRON Voice ID: [id number] Report ID: [id number]
== END 2021-12-14 12:50 | disposition home or self-care (01) | DRG 603 ==
LOC: ER 17:13 → ERHOLD 21:46 → 4TH 22:44 → OBSVTOIN 12-13 17:06
PROVIDERS: ADMIT Internal Medicine; ATTEND Internal Medicine
PROC: 0J990ZZ Drainage of Buttock Subcutaneous Tissue and Fascia, Open Approach (ICD-10-PCS; principal; 2021-12-13 11:45)
DX: L03.317 Cellulitis of buttock (principal); L02.31 Cutaneous abscess of buttock; E11.9 Type 2 diabetes mellitus without complications; E78.5 Hyperlipidemia, unspecified; Z79.899 Other long term (current) drug therapy; Z87.891 Personal history of nicotine dependence; Z20.822 Contact with and (suspected) exposure to COVID-19
CPT/HCPCS: 36415; 72193; 80048; 80053; 82947; 83036; 83735; 85025; 87070; 87075; 87205; 87811; 88304; 96365; 96375; 99285; G0378; J0692; J1100; J1815; J2001; J2250; J2704; J3010; J3370; J7030; J7040; J7050; Q9967